=== PATIENT | female | born 1965 | race Caucasian/White ===

== ENCOUNTER 2017-06-06 09:57 | Outpatient (CLI) ==
[2016-08-04 13:57] VITALS: BMI 39.1
[2017-06-07 13:04] LABS: FOLLICLE STIMULATING HORMONE 73.9 mIU/mL (.); LUTEINIZING HORMONE 47.4 mIU/mL (.)
== END 2017-06-06 09:58 | disposition home or self-care (01) ==
LOC: LAB 09:57
PROVIDERS: ATTEND Obstetrics & Gynecology
DX: N95.1 Menopausal and female climacteric states (principal)
CPT/HCPCS: 36415; 83001; 83002